=== PATIENT | female | born 1985 | race Caucasian/White ===

== ENCOUNTER 2016-11-24 14:08 | Emergency (ER) | payer OTHER ==
[~2016-11-24] VITALS: Ht 167.6 cm; Wt 113.6 kg
[~2016-11-24 14:08] MED LIST: AMITRIPTYLINE H10 M1 PO; AMITRIPTYLINE H25 M1 PO; AMOXICILLIN 50500 MG PO; BACTRIM DS 8001 TAB PO; CEPHALEXIN500 M1 PO; CIPRO 500MG TA500 MG PO; DEPO-PROVER150 MG/M1 IM; DIAMOX 250MG250 MG PO; DIAMOX SEQUELS500 M1 PO; FIORICET 325 MG1 TA1; FLAGYL500 MG PO; FLEXERIL 1010 MG/TAB PO; IBUPROFEN 200200 MG PO; IMITREX100 MG PO; ISOPTIN PO; ISOPTIN SR180 M1 PO; K-DUR 2020 MEQ PO; LORTAB 5/500 501 TAB PO; MIRALAX119G PO; MOTRIN 800800 MG/TAB PO; NAPROSYN500 MG PO; NEURONTIN300 MG/CAP PO; NEXIUM20 MG PO; NO HOME MEDICATIONS; NORCO 325 MG-51 TAB PO; NORCO 325 MG-7.1 TAB PO; PHENERGAN 25 TA25 MG PO; PHENERGAN W/CO120 M1 PO; PRILOTC PO; TOPAMAX 25MG25 M1 PO; TOPAMAX50 MG PO; TOPIRAMATE PO; ULTRAM 50MG TAB50 MG; XANAX0.5 MG PO; ZOFRAN 4MG T4 MG/TAB; ZOFRAN 4MG T4 MG/TAB PO; ZOLOFT 100MG100 MG PO; ZOLOFT 50MG50 MG PO; ZOLOFT50 MG PO
[2016-11-24 14:20] VITALS: TEMP 98.9
[2016-11-24] MEDS ORDERED: FIORICET 325 MG1 TA1 PO (14:22)
[2016-11-24 15:55] LABS: CALCIUM 9.4 mg/dL (8.4-10.2); CREATININE, serum 0.9 mg/dL (0.52-1.25); POTASSIUM 4.1 mmol/L (3.4-5.0)
[2016-11-24 15:56] LABS: MEAN CELL VOLUME 65 fl (80.0-100.0); MEAN CORPUSCULAR HGB CONC 31 g/dl (33.0-37.0); PLATELET COUNT 258 K/mm3 (130-400); RED BLOOD COUNT 5.56 M/mm3 (4.10-5.30); REDCELL DISTRIBUTION WIDTH-CV 14.9 % (11.5-14.5)
[2016-11-24 15:58] LABS: HEMATOCRIT 36.3 % (37.0-47.0); HEMOGLOBIN 11.2 g/dl (12.5-16.0); MEAN CORPUSCULAR HEMOGLOBIN 20 pg (27.0-31.0)
[2016-11-24 17:09] VITALS: BP 112/64; PULSE 78
== END 2016-11-24 17:12 | disposition home or self-care (01) ==
LOC: COL.ER 14:08
PROVIDERS: Emergency Medicine
DX: R51 Headache (principal); R55 Syncope and collapse; M54.2 Cervicalgia; W16.212A Fall in (into) filled bathtub causing other injury, initial encounter; Y92.002 Bathroom of unspecified non-institutional (private) residence as the place of occurrence of the external cause
CPT/HCPCS: J1200; J1885; J2405; J2765; J7030

== ENCOUNTER 2017-03-02 13:41 | Emergency (ER) | payer OTHER ==
[~2017-03-02] VITALS: Ht 167.6 cm; Wt 111.8 kg
[~2017-03-02 13:41] MED LIST changes: +FIORICET 325 MG1 TA1 PO
[2017-03-02 13:46] VITALS: BP 108/58; TEMP 99.4
[2017-03-02] MEDS ORDERED: ULTRAM 50MG TAB50 MG PO (14:39)
[2017-03-02 14:46] VITALS: PULSE 80
== END 2017-03-02 14:47 | disposition home or self-care (01) ==
LOC: COL.ER 13:41
DX: S46.811A Strain of other muscles, fascia and tendons at shoulder and upper arm level, right arm, initial encounter (principal); X50.0XXA Overexertion from strenuous movement or load, initial encounter

== ENCOUNTER 2017-03-10 14:07 | Emergency (ER) | payer OTHER ==
[~2017-03-10] VITALS: Ht 167.6 cm; Wt 112.7 kg
[~2017-03-10 14:07] MED LIST changes: +ULTRAM 50MG TAB50 MG PO
[2017-03-10 14:10] VITALS: BP 126/78; TEMP 98.8
[2017-03-10] MEDS ORDERED: ZANTAC 7575 MG PO (14:21)
[2017-03-10] MEDS ORDERED: FLEXERIL 1010 MG/TAB PO (14:22)
[2017-03-10 15:18] LABS: PH 6 (5-8); SQUAMOUS EPITHELIAL 0-2 /hpf; URINE APPEARANCE Clear; URINE BACTERIA Rare /hpf; URINE BILIRUBIN Negative (NEGATIVE); URINE BLOOD Negative (NEGATIVE); URINE COLOR Yellow; URINE GLUCOSE Negative (NEGATIVE); URINE KETONE Negative (NEGATIVE); URINE UROBILINOGEN Negative (NEGATIVE); URINE WBC 0-2 /hpf
[2017-03-10] MEDS ORDERED: NORCO 325 MG-51 TAB PO (16:30)
[2017-03-10 17:38] VITALS: PULSE 70
== END 2017-03-10 17:40 | disposition home or self-care (01) ==
LOC: COL.ER 14:07
PROVIDERS: Emergency Medicine
DX: S39.012A Strain of muscle, fascia and tendon of lower back, initial encounter (principal); X50.0XXA Overexertion from strenuous movement or load, initial encounter; Z90.49 Acquired absence of other specified parts of digestive tract
CPT/HCPCS: J1170; J1885; J3360

== ENCOUNTER 2017-05-18 13:58 | Emergency (ER) | payer OTHER ==
[~2017-05-18] VITALS: Ht 167.6 cm; Wt 111.4 kg
[~2017-05-18 13:58] MED LIST changes: +ZANTAC 7575 MG PO
[2017-05-18 14:01] VITALS: BP 118/57; PULSE 88; TEMP 99.1
== END 2017-05-18 14:43 | disposition home or self-care (01) ==
LOC: COL.ER 13:58
DX: S60.221A Contusion of right hand, initial encounter (principal); W23.1XXA Caught, crushed, jammed, or pinched between stationary objects, initial encounter; Y92.009 Unspecified place in unspecified non-institutional (private) residence as the place of occurrence of the external cause

== ENCOUNTER → 2017-07-12 | Outpatient (CLI) | payer OTHER | LOC: MC.RAD 12:58 | DX: N63.10 Unspecified lump in the right breast, unspecified quadrant (principal); N63.20 Unspecified lump in the left breast, unspecified quadrant ==

== ENCOUNTER 2017-12-16 07:45 | Day surgery (SDC) | payer OTHER ==
[~2017-12-16] VITALS: Ht 167.6 cm; Wt 112.8 kg
[2017-12-16 08:03] VITALS: BP 113/66; PULSE 89; TEMP 98.4
[2017-12-16] MEDS ORDERED: ZOFRAN 4MG T4 MG/TAB PO (08:12)
[2017-12-16] MEDS ORDERED: FLEXERIL 1010 MG/TAB PO (08:13)
[2017-12-16] MEDS ORDERED: DILAUDID 2MG/2 MG/M1 IV (11:13)
[2017-12-16 11:42] VITALS: BP 121/56; PULSE 66; TEMP 97.6
[2017-12-16 12:00] VITALS: BP 96/61; PULSE 58
[2017-12-16 12:15] VITALS: BP 112/54; PULSE 65
[2017-12-16 13:17] VITALS: BP 113/63; PULSE 64
== END 2017-12-16 12:42 | disposition home or self-care (01) ==
LOC: SDCO 07:45
DX: K64.5 Perianal venous thrombosis (principal); K92.1 Melena; D64.9 Anemia, unspecified; K21.9 Gastro-esophageal reflux disease without esophagitis; E66.9 Obesity, unspecified; Z68.41 Body mass index [BMI] 40.0-44.9, adult; Z90.49 Acquired absence of other specified parts of digestive tract; Z90.710 Acquired absence of both cervix and uterus; Z80.1 Family history of malignant neoplasm of trachea, bronchus and lung; Z80.0 Family history of malignant neoplasm of digestive organs; Z82.3 Family history of stroke
CPT/HCPCS: J1100; J1885; J2405; J2704; J3010; J7120

== ENCOUNTER 2018-02-13 15:02 | Emergency (ER) | payer OTHER ==
[~2018-02-13] VITALS: Ht 167.6 cm; Wt 110.5 kg
[~2018-02-13 15:02] MED LIST changes: +DILAUDID 2MG/2 MG/M1 IV
[2018-02-13 15:04] VITALS: BP 152/78; PULSE 103; TEMP 99
[2018-02-13] MEDS ORDERED: IBU600 MG PO (15:31)
[2018-02-13] MEDS ORDERED: FLEXERIL 1010 MG/TAB PO (15:31)
== END 2018-02-13 15:40 | disposition home or self-care (01) ==
LOC: COL.ER 15:02
DX: M25.511 Pain in right shoulder (principal); Z90.710 Acquired absence of both cervix and uterus; X50.0XXA Overexertion from strenuous movement or load, initial encounter
CPT/HCPCS: J1885; J2360

== ENCOUNTER 2018-04-25 08:33 | Day surgery (SDC) | payer OTHER ==
[~2018-04-25] VITALS: Ht 167.6 cm; Wt 114.0 kg
[~2018-04-25 08:33] MED LIST changes: +IBU600 MG PO
[2018-04-25] MEDS ORDERED: MAXALT10 MG PO (08:52)
[2018-04-25 08:53] VITALS: BP 122/77; PULSE 92; TEMP 98.3
[2018-04-25] MEDS ORDERED: PRILOTC PO (08:53)
[2018-04-25 10:25] VITALS: BP 115/60; PULSE 89; TEMP 98.3
[2018-04-25 10:40] VITALS: BP 122/77; PULSE 88
[2018-04-25 10:55] VITALS: BP 120/76; PULSE 74
[2018-04-25 11:10] VITALS: BP 121/63; PULSE 79
== END 2018-04-25 11:20 | disposition home or self-care (01) ==
LOC: SDCO 08:33
DX: K63.5 Polyp of colon (principal); K92.1 Melena; D64.9 Anemia, unspecified; Z90.49 Acquired absence of other specified parts of digestive tract; Z90.710 Acquired absence of both cervix and uterus; Z80.1 Family history of malignant neoplasm of trachea, bronchus and lung; Z80.0 Family history of malignant neoplasm of digestive organs; Z82.3 Family history of stroke
CPT/HCPCS: OP; J2250; J2405; J3010; J7030

== ENCOUNTER 2018-10-04 20:30 | Emergency (ER) | payer OTHER ==
[~2018-10-04] VITALS: Ht 167.6 cm; Wt 114.1 kg
[~2018-10-04 20:30] MED LIST changes: +MAXALT10 MG PO
[2018-10-04 20:34] VITALS: BP 136/68; TEMP 98.5
[2018-10-04] MEDS ORDERED: OMNICEF 300MG300 MG PO (22:27)
[2018-10-04 22:38] VITALS: PULSE 81
== END 2018-10-04 22:38 | disposition home or self-care (01) ==
LOC: COL.ER 20:30
DX: J34.89 Other specified disorders of nose and nasal sinuses (principal); I10 Essential (primary) hypertension; Z98.890 Other specified postprocedural states

== ENCOUNTER 2018-11-30 10:53 | Emergency (ER) | payer OTHER ==
[~2018-11-30] VITALS: Ht 167.6 cm; Wt 114.5 kg
[~2018-11-30 10:53] MED LIST changes: +OMNICEF 300MG300 MG PO
[2018-11-30 11:05] VITALS: BP 144/75; TEMP 99.1
[2018-11-30] MEDS ORDERED: CEPHALEXIN500 M1 PO (12:07)
[2018-11-30 12:23] VITALS: PULSE 84
== END 2018-11-30 12:26 | disposition home or self-care (01) ==
LOC: COL.ER 10:53
DX: T21.22XA Burn of second degree of abdominal wall, initial encounter (principal); G43.909 Migraine, unspecified, not intractable, without status migrainosus; X12.XXXA Contact with other hot fluids, initial encounter; Y92.009 Unspecified place in unspecified non-institutional (private) residence as the place of occurrence of the external cause

== ENCOUNTER 2019-03-10 19:39 | Emergency (ER) | payer OTHER ==
[~2019-03-10] VITALS: Ht 167.6 cm; Wt 112.7 kg
[2019-03-10 19:43] VITALS: TEMP 98.8
[2019-03-10 22:53] VITALS: BP 97/53; PULSE 61
== END 2019-03-10 22:53 | disposition home or self-care (01) ==
LOC: COL.ER 19:39
DX: G43.909 Migraine, unspecified, not intractable, without status migrainosus (principal); Z90.710 Acquired absence of both cervix and uterus
CPT/HCPCS: J1200; J2270; J2550

== ENCOUNTER 2019-06-26 10:30 | Outpatient (RCR) | payer OTHER | END 2019-08-15 | disposition home or self-care (01) | LOC: WSPT | DX: M75.111 Incomplete rotator cuff tear or rupture of right shoulder, not specified as traumatic (principal); Z90.710 Acquired absence of both cervix and uterus ==

== ENCOUNTER 2020-04-07 21:14 | Emergency (ER) | payer OTHER ==
[~2020-04-07] VITALS: Ht 167.6 cm; Wt 111.4 kg
[2020-04-07 21:17] VITALS: TEMP 98.5
[2020-04-07 22:03] VITALS: BP 97/69; PULSE 82
== END 2020-04-07 22:03 | disposition home or self-care (01) ==
LOC: COL.ER 21:14
DX: S61.212A Laceration without foreign body of right middle finger without damage to nail, initial encounter (principal); W26.8XXA Contact with other sharp object(s), not elsewhere classified, initial encounter

== ENCOUNTER → 2020-09-18 | Outpatient (CLI) | payer OTHER | LOC: MC.RAD 11:00 | DX: N63.20 Unspecified lump in the left breast, unspecified quadrant (principal) ==

== ENCOUNTER 2021-08-12 08:53 | Outpatient (CLI) | payer OTHER ==
[2021-08-12] VITALS (7 sets, daily range): BP systolic 108–143; BP diastolic 66–89; PULSE 72–80; TEMP 99.5
[2021-08-12] MEDS ORDERED: AJOVY AUTO225 MG/1.5 SQ (09:43)
[2021-08-12] MEDS ORDERED: XANAX .25M0.25 MG/TA PO (09:43)
== END 2021-08-12 11:00 | disposition home or self-care (01) ==
LOC: EUO 08:53
DX: U07.1 COVID-19 (principal)
CPT/HCPCS: M0245

== ENCOUNTER → 2022-03-18 | Outpatient (CLI) | payer OTHER ==
[~2022-03-18] MED LIST changes: +AJOVY AUTO225 MG/1.5 SQ; +XANAX .25M0.25 MG/TA PO
== END ==
LOC: MC.RAD 13:00
DX: N64.4 Mastodynia (principal); Z87.898 Personal history of other specified conditions

== ENCOUNTER 2022-05-06 15:25 | Emergency (ER) | payer OTHER ==
[~2022-05-06] VITALS: Ht 167.6 cm; Wt 109.1 kg
[2022-05-06 15:40] VITALS: TEMP 98.4
[2022-05-06 19:05] VITALS: BP 114/69; PULSE 69
== END 2022-05-06 18:49 | disposition home or self-care (01) ==
LOC: COL.ER 15:25
DX: R51.9 Headache, unspecified (principal); Z86.69 Personal history of other diseases of the nervous system and sense organs; Z87.798 Personal history of other (corrected) congenital malformations; Z28.310 Unvaccinated for COVID-19
CPT/HCPCS: J0780; J1790; J1885